=== PATIENT | male | born 1965 | race Caucasian/White ===

== ENCOUNTER 2017-10-09 12:27 | Outpatient (CLI) | payer MEDICARE, MEDICAID ==
[2017-10-09 13:23] LABS: Anion Gap 8 mmol/L (10-20); BUN (Urea Nitrogen) 16 mg/dL (8.4-25.7); Calc. Creatinine Clearance 0 mL/min (70-130); Carbon Dioxide 30 mmol/L (22-29); Chloride 105 mmol/L (98-107); Estimated GFR-MDRD Greater than 90; Glucose 109 mg/dL (70-105); Potassium 4.1 mmol/L (3.5-5.1); Sodium 139 mmol/L (136-145)
--- NOTE | 2017-10-09 14:48 | ULT ---
BILATERAL RENAL ULTRASOUND COMPLETE: HISTORY: A 52-year-old male with a history of benign prostatic hypertrophy. COMPARISON: 04/18/17. FINDINGS: The right kidney measures 9.5 x 4.2 x 4.0 cm. The left kidney measures 9.4 x 4.6 x 4.5 cm. The urinary bladder shows some inferior bladder wall heterogeneous thickening. Bilateral ureteral j ets are noted. No renal hydronephrosis or perinephric process. IMPRESSION: Unremarkable bilateral renal ultrasound. No renal hydronephrosis. The prostate gland measures appro ximately 4.6 x 3.0 x 3.6 cm. No postvoid imaging was performed. Thickening of the posterior bladder wall. POS: [facility]
== END 2017-10-09 12:28 | disposition home or self-care (01) ==
LOC: ULT 12:27
PROVIDERS: ATTEND Urology
DX: N40.1 Benign prostatic hyperplasia with lower urinary tract symptoms (principal); R39.14 Feeling of incomplete bladder emptying; R33.9 Retention of urine, unspecified; N32.89 Other specified disorders of bladder
CPT/HCPCS: 36415; 76770; 80048

== ENCOUNTER 2018-04-16 09:16 | Outpatient (CLI) | payer MEDICARE, MEDICAID | END 2018-04-16 09:17 | disposition home or self-care (01) | LOC: BICULT 09:16 | PROVIDERS: ATTEND Urology | DX: N40.1 Benign prostatic hyperplasia with lower urinary tract symptoms (principal); R33.9 Retention of urine, unspecified; N32.89 Other specified disorders of bladder | CPT/HCPCS: 36415; 74018; 76770; 80048 ==

== ENCOUNTER 2019-06-12 09:06 | Outpatient (CLI) | payer MEDICARE, MEDICAID ==
[2019-06-12 11:16] LABS: Hemoglobin 14.9 g/dL (14.0-18.0); Mean Corpuscular HGB CONC 33.4 g/dL (32.0-36.0); Mean Corpuscular Hemoglobin 32.3 pg (27.0-31.0); Mean Corpuscular Volume 96.5 fL (78.0-98.0); Mean Platelet Volume 8.8 fL (7.4-10.4); Platelet Count 170 thou/uL (130-400); RBC Distribution Width 11.9 % (11.5-14.5); Red Blood Cell (RBC) Count 4.62 mill/uL (4.70-6.10); White Blood Cell (WBC) Count 7.1 thou/uL (4.8-10.8)
[2019-06-12 11:22] LABS: INR-International Normal Ratio 1.2; PTT 34.4 SEC (22.9-36.1); Prothrombin Time 14.7 SEC (12.0-14.7)
[2019-06-12 11:37] LABS: Anion Gap 9 mmol/L (10-20); BUN (Urea Nitrogen) 17 mg/dL (8.4-25.7); Calc. Creatinine Clearance 0 mL/min (70-130); Calcium 8.6 mg/dL (7.8-10.44); Carbon Dioxide 28 mmol/L (22-29); Chloride 103 mmol/L (98-107); Estimated GFR-MDRD Greater than 90; Glucose 85 mg/dL (70-105); Potassium 3.8 mmol/L (3.5-5.1); Sodium 136 mmol/L (136-145)
--- NOTE | 2019-06-13 23:23 | EKG ---
Test Reason : Blood Pressure : / mmHG Vent. Rate : 054 BPM Atrial Rate : 054 BPM P-R Int : 134 ms QRS Dur : 082 ms QT Int : 416 ms P-R-T Axes : 080 082 064 degrees QTc Int : 394 ms Sinus bradycardia Otherwise normal ECG No previous ECGs available Confirmed by Alexei BRISENO ([id number]) on 06/13/2019 11:23:14 PM Referred By: JAXON Confirmed By:Alexei BRISENO
== END 2019-06-12 09:07 | disposition home or self-care (01) ==
LOC: LABBT 09:06
PROVIDERS: ATTEND Urology
DX: Z01.818 Encounter for other preprocedural examination (principal); N40.0 Benign prostatic hyperplasia without lower urinary tract symptoms; N47.1 Phimosis
CPT/HCPCS: 80048; 81001; 85027; 85610; 85730; 87086; 93005; 93010

== ENCOUNTER 2019-07-12 08:49 | Outpatient (CLI) | payer MEDICARE, MEDICAID ==
[2019-07-12 12:01] LABS: Hemoglobin 15.9 g/dL (14.0-18.0); Mean Corpuscular HGB CONC 33.8 g/dL (32.0-36.0); Mean Corpuscular Hemoglobin 32.6 pg (27.0-31.0); Mean Corpuscular Volume 96.3 fL (78.0-98.0); Mean Platelet Volume 8.9 fL (7.4-10.4); Platelet Count 184 thou/uL (130-400); RBC Distribution Width 11.9 % (11.5-14.5); Red Blood Cell (RBC) Count 4.88 mill/uL (4.70-6.10); White Blood Cell (WBC) Count 7.7 thou/uL (4.8-10.8)
[2019-07-12 12:07] LABS: INR-International Normal Ratio 1.1; PTT 34.4 SEC (22.9-36.1); Prothrombin Time 14.4 SEC (12.0-14.7)
[2019-07-12 12:15] LABS: Anion Gap 10 mmol/L (10-20); BUN (Urea Nitrogen) 14 mg/dL (8.4-25.7); Calc. Creatinine Clearance 0 mL/min (70-130); Carbon Dioxide 29 mmol/L (22-29); Chloride 104 mmol/L (98-107); Estimated GFR-MDRD Greater than 90; Glucose 92 mg/dL (70-105); Potassium 4.5 mmol/L (3.5-5.1); Sodium 138 mmol/L (136-145)
--- NOTE | 2019-07-12 14:24 | EKG ---
Test Reason : Blood Pressure : / mmHG Vent. Rate : 056 BPM Atrial Rate : 056 BPM P-R Int : 134 ms QRS Dur : 090 ms QT Int : 410 ms P-R-T Axes : 077 082 065 degrees QTc Int : 395 ms Sinus bradycardia Otherwise normal ECG When compared with ECG of 12-JUN-2019 10:58, No significant change was found Confirmed by DR. Milly MENON ([id number]) on 07/12/2019 2:24:16 PM Referred By: QUINTEN Confirmed By:DR. Milly MENON
== END 2019-07-12 08:50 | disposition home or self-care (01) ==
LOC: LABBT 08:49
PROVIDERS: ATTEND Urology
DX: Z01.818 Encounter for other preprocedural examination (principal); N47.1 Phimosis; N40.0 Benign prostatic hyperplasia without lower urinary tract symptoms
CPT/HCPCS: 80048; 81001; 85027; 85610; 85730; 87086; 93005; 93010

== ENCOUNTER 2019-07-24 06:44 | Day surgery (SDC) | payer MEDICARE, MEDICAID ==
[2019-06-12 11:18] VITALS: BMI 21.8
[2019-07-24] MEDS ORDERED: Levofloxacin 500 mg/D5W 100 ml Premix Bag ONE (06:59)
[2019-07-24] MEDS ORDERED: Fentanyl 100 MCG/2 ML VIAL ONE (08:23)
[2019-07-24] MEDS ORDERED: Midazolam HCl 2 mg/2 ml Vial ONE (08:23)
[2019-07-24] MEDS ORDERED: Bacitracin Zinc Ointment 30 gm TUBE ONE (09:24)
[2019-07-24] MEDS ORDERED: PROPOFOL 200 MG/20 ML VIAL ONE (09:34)
[2019-07-24] MEDS ORDERED: Lidocaine 1% PF 5 ML VIAL ONE (09:34)
[2019-07-24] MEDS ORDERED: Phenazopyridine HCl 97.5 MG TABLET ONE (12:03)
--- NOTE | 2019-07-24 16:01 | OP ---
DATE OF PROCEDURE: 07/24/2019 PRIMARY CARE PHYSICIAN: Iwona Miller, WILBUR-C. PREOPERATIVE DIAGNOSES: 1. A 53-year-old male with history of chronic incomplete emptying, large capacity bladder. 2. History of BPH. 3. Phimosis. POSTOPERATIVE DIAGNOSES: 1. A 53-year-old male with history of chronic incomplete emptying, large capacity bladder. 2. History of BPH. 3. Phimosis. PROCEDURES PERFORMED: Cystoscopy, dorsal slit, UroLift implant x7.. ANESTHESIA: TIVA. COMPLICATIONS: None apparent. DISPOSITION: To recovery room in stable condition. INDICATIONS FOR PROCEDURE AND HISTORY: Mr. Carranza is a pleasant 53-year-old male, whom I have been following due to history of BPH on BPH medications, large capacity delayed sensation bladder on chronic CICs. He does have phimosis, meatus can be seen and however unable to retract the foreskin complete. He has been performing CIC with no significant issues. His sister who is his power of adult high school instructor desired trial of BPH surgery in hopes that he would void complete. I informed the patient and sister that incomplete emptying may ensue, as he has concomitant bladder pathologies. With full understanding that chronic incomplete emptying may ensue , they would like to try to proceed with a UroLift implant to minimize his outlet obstruction. Risks and complications of the procedure were reviewed with him in detail including, but not limited to, bleeding, pain, infection, injury to adjacent organs such as neurovascular structures, ureteral orifices. Possible incrustation of the implant resulting in urethral bladder stone requiring secondary procedure has been discussed. Questions were encouraged and answered to their satisfaction and desired to proceed. DESCRIPTION OF PROCEDURE: After an informed consent was signed, the patient was taken to the operating room, placed in the dorsal lithotomy position with the genital area prepped and draped in the usual surgical sterile fashion. Bilateral ARMINDA hose, SCDs, and broad-spectrum antibiotics were provided. At this time, the genital area was prepped and again we were unable to retract the foreskin complete. A 22-Italian cystoscope was passed without significant issues, which demonstrated pendulous urethra with no stricture. Prostatic urethra demonstrating bilobar hyperplasia, moderate obstruction. No median lobe was noted. The UOs are about 3 to 4 mm from the bladder neck and kept out of harm's way. At this time, we placed a 21-Italian, UroLift implant device with a visual obturator. Subsequently, transition to the UroLift device and we proceeded to place the first implant on the left side. Care was taken to stay at least a centimeter and half proximal to the bladder neck. We put a total of three implants on the left lobe, four on the right. At the end of the procedure, resolution of his obstructing lateral lobes were noted with nice anterior channel. He tolerated the procedure well. I was able to pass a 16- Italian catheter in and out without significant issues. The bladder was filled a bit for a voiding trial in the recovery room. We subsequently then prepped his foreskin and glans again, a dorsal slit incision was made to the level of the coronal sulcus. The edges of the mucosa were cauterized. The mucosa on the skin edge was then reapproximated using 3-0 chromic in a running fashion. He tolerated the procedure well and transported to the recovery room in stable condition. I will monitor him postop for a voiding trial. If he does not empty, we will discharge with indwelling Amador catheter for repeat voiding trial at a later date. He is discharged with ciprofloxacin for course of 5 days, Marek so Job ID: [id number] [facility]
== END 2019-07-24 12:48 | disposition home or self-care (01) ==
LOC: CANPRESDC → SDC 06:44
PROVIDERS: ATTEND Urology
PROC: 0T7D8DZ Dilation of Urethra with Intraluminal Device, Via Natural or Artificial Opening Endoscopic (ICD-10-PCS; principal; 2019-07-24)
PROC: 0VNTXZZ Release Prepuce, External Approach (ICD-10-PCS; 2019-07-24)
DX: N40.1 Benign prostatic hyperplasia with lower urinary tract symptoms (principal); R39.14 Feeling of incomplete bladder emptying; N47.1 Phimosis; F71 Moderate intellectual disabilities; E78.5 Hyperlipidemia, unspecified; F32.9 Major depressive disorder, single episode, unspecified; Z79.899 Other long term (current) drug therapy
CPT/HCPCS: 54001; C9740; C1889; J1956; J2001; J2250; J2704; J3010

== ENCOUNTER 2021-04-19 13:43 | Outpatient (CLI) | payer MEDICARE, MEDICAID | END 2021-04-19 13:44 | disposition home or self-care (01) | LOC: BICULT 13:43 | PROVIDERS: ATTEND Urology | DX: N40.1 Benign prostatic hyperplasia with lower urinary tract symptoms (principal); R33.8 Other retention of urine; R97.20 Elevated prostate specific antigen [PSA]; N28.1 Cyst of kidney, acquired | CPT/HCPCS: 76770 ==

== ENCOUNTER 2022-07-11 12:31 | Outpatient (CLI) | payer MEDICARE, MEDICAID | END 2022-07-11 12:32 | disposition home or self-care (01) | LOC: BICULT 12:31 | PROVIDERS: ATTEND Urology | DX: N40.1 Benign prostatic hyperplasia with lower urinary tract symptoms (principal); R33.8 Other retention of urine; N28.1 Cyst of kidney, acquired | CPT/HCPCS: 76770 ==